=== PATIENT | male | born 1995 | race African-American/Black ===

== ENCOUNTER 2017-03-13 20:02 | Emergency (ER) | payer SELFPAY ==
[~2017-03-13] VITALS: Ht 180.3 cm; Wt 69.8 kg
[2017-03-13 20:24] VITALS: BP 127/76
== END 2017-03-14 | disposition left against medical advice (07) ==
LOC: ER 20:02
DX: R51 Headache (principal); Z53.21 Procedure and treatment not carried out due to patient leaving prior to being seen by health care provider

== ENCOUNTER 2018-01-22 14:12 | Emergency (ER) | payer MEDICAID ==
[~2018-01-22] VITALS: Ht 180.3 cm; Wt 70.7 kg
[2018-01-22 14:58] VITALS: BP 113/68
[2018-01-22] MEDS ORDERED: ALBUTEROL (0.083%) 2.5MG/3ML NEB HHN STA (18:37)
[2018-01-22] MEDS ORDERED: IPRATROPIUM BROMIDE (0.02%) 0.5MG/2.5ML NEB HHN STA (18:37)
== END 2018-01-22 18:56 | disposition home or self-care (01) ==
LOC: ER 14:12
DX: J06.9 Acute upper respiratory infection, unspecified (principal); F12.10 Cannabis abuse, uncomplicated; F17.200 Nicotine dependence, unspecified, uncomplicated
CPT/HCPCS: 71045; 99283; J7611

== ENCOUNTER 2018-06-28 04:00 | Emergency (ER) | payer MEDICAID ==
[~2018-06-28] VITALS: Ht 175.3 cm; Wt 75.0 kg
[2018-06-28] MEDS ORDERED: IBUPROFEN 600MG TABLET PO ONE (08:45)
[2018-06-28 08:53] VITALS: BP 109/57
== END 2018-06-28 09:21 | disposition home or self-care (01) ==
LOC: ER 04:00
DX: S80.01XA Contusion of right knee, initial encounter (principal); J45.909 Unspecified asthma, uncomplicated; E11.9 Type 2 diabetes mellitus without complications; Z88.8 Allergy status to other drugs, medicaments and biological substances; W22.8XXA Striking against or struck by other objects, initial encounter; Y93.89 Activity, other specified; Y92.69 Other specified industrial and construction area as the place of occurrence of the external cause; Y99.8 Other external cause status
CPT/HCPCS: 73560; 99283

== ENCOUNTER 2018-10-09 12:40 | Emergency (ER) | payer MEDICAID ==
[~2018-10-09] VITALS: Ht 180.3 cm; Wt 73.0 kg
[2018-10-09 13:09] VITALS: BP 113/77
== END 2018-10-09 15:33 | disposition left against medical advice (07) ==
LOC: ER 12:40
DX: R06.2 Wheezing (principal); Z53.21 Procedure and treatment not carried out due to patient leaving prior to being seen by health care provider

== ENCOUNTER 2018-10-10 11:48 | Emergency (ER) | payer MEDICAID ==
[~2018-10-10] VITALS: Ht 180.3 cm; Wt 75.0 kg
[2018-10-10] MEDS ORDERED: LEVOFLOXACIN 500MG TABLET PO ONE (12:30)
[2018-10-10] MEDS ORDERED: PREDNISONE 20MG TABLET PO STA (12:30)
[2018-10-10] MEDS ORDERED: IPRATROPIUM/ALBUTEROL 0.5-3(2.5)MG/3ML NEB HHN ONE (12:30)
[2018-10-10 13:37] VITALS: BP 116/64
== END 2018-10-10 13:38 | disposition home or self-care (01) ==
LOC: ER 12:00
DX: J45.909 Unspecified asthma, uncomplicated (principal); R05 Cough; F17.210 Nicotine dependence, cigarettes, uncomplicated; F12.10 Cannabis abuse, uncomplicated; Z98.890 Other specified postprocedural states; Z88.8 Allergy status to other drugs, medicaments and biological substances; Z71.6 Tobacco abuse counseling
CPT/HCPCS: 71045; 94640; 99283; J7512; J7620

== ENCOUNTER 2018-10-31 17:29 | Emergency (ER) | payer MEDICAID ==
[~2018-10-31] VITALS: Ht 175.3 cm; Wt 68.0 kg
[2018-10-31] MEDS ORDERED: ALPRAZOLAM 0.25 MG TABLET PO ONE (18:45)
[2018-10-31 20:21] VITALS: BP 162/78
== END 2018-10-31 20:24 | disposition home or self-care (01) ==
LOC: ER 17:29
DX: F41.0 Panic disorder [episodic paroxysmal anxiety] (principal); F41.9 Anxiety disorder, unspecified; E11.9 Type 2 diabetes mellitus without complications; R56.9 Unspecified convulsions
CPT/HCPCS: 82962; 99284

== ENCOUNTER 2018-11-06 11:23 | Emergency (ER) | payer MEDICAID ==
[~2018-11-06] VITALS: Ht 177.8 cm; Wt 70.0 kg
[2018-11-06 12:26] VITALS: BP 146/74
== END 2018-11-06 12:27 | disposition home or self-care (01) ==
LOC: ER 11:23
DX: F41.9 Anxiety disorder, unspecified (principal); F17.200 Nicotine dependence, unspecified, uncomplicated; F12.10 Cannabis abuse, uncomplicated; F20.9 Schizophrenia, unspecified; Z88.9 Allergy status to unspecified drugs, medicaments and biological substances; Z88.6 Allergy status to analgesic agent; Z98.890 Other specified postprocedural states
CPT/HCPCS: 99284

== ENCOUNTER 2018-12-10 10:44 | Emergency (ER) | payer MEDICAID ==
[~2018-12-10] VITALS: Ht 180.3 cm; Wt 73.0 kg
[2018-12-10 11:04] VITALS: BP 179/87
[2018-12-10] MEDS ORDERED: IBUPROFEN 800MG TABLET PO ONE (12:45)
== END 2018-12-10 13:02 | disposition home or self-care (01) ==
LOC: ER 10:44
DX: K08.89 Other specified disorders of teeth and supporting structures (principal); F41.9 Anxiety disorder, unspecified; F20.9 Schizophrenia, unspecified; J45.909 Unspecified asthma, uncomplicated; F17.200 Nicotine dependence, unspecified, uncomplicated; F12.10 Cannabis abuse, uncomplicated; Z88.8 Allergy status to other drugs, medicaments and biological substances
CPT/HCPCS: 99282

== ENCOUNTER 2018-12-19 10:59 | Emergency (ER) | payer MEDICAID ==
[~2018-12-19] VITALS: Ht 180.3 cm; Wt 73.0 kg
[2018-12-19 11:08] VITALS: BP 124/71
== END 2018-12-19 13:42 | disposition left against medical advice (07) ==
LOC: ER 10:59
DX: Z53.21 Procedure and treatment not carried out due to patient leaving prior to being seen by health care provider (principal)

== ENCOUNTER 2018-12-20 16:48 | Emergency (ER) | payer MEDICAID | END 2018-12-20 18:09 | disposition left against medical advice (07) | LOC: ER 16:48 | DX: K08.89 Other specified disorders of teeth and supporting structures (principal); Z53.21 Procedure and treatment not carried out due to patient leaving prior to being seen by health care provider ==

== ENCOUNTER 2019-04-18 13:03 | Emergency (ER) | payer MEDICAID ==
[~2019-04-18] VITALS: Ht 180.3 cm; Wt 72.0 kg
[2019-04-18 13:36] VITALS: BP 119/68
== END 2019-04-18 14:15 | disposition left against medical advice (07) ==
LOC: ER 13:03
DX: R68.89 Other general symptoms and signs (principal); Z53.21 Procedure and treatment not carried out due to patient leaving prior to being seen by health care provider

== ENCOUNTER 2019-05-16 13:18 | Emergency (ER) | payer MEDICAID ==
[~2019-05-16] VITALS: Ht 170.2 cm; Wt 73.0 kg
[2019-05-16] MEDS ORDERED: LIDOCAINE HCL/PF 1% 10 MG/ML 5ML VIAL IJ ONE (14:30)
[2019-05-16] MEDS ORDERED: IBUPROFEN 600MG TABLET PO STA (14:39)
[2019-05-16 15:21] VITALS: BP 106/53
[2019-05-16] MEDS ORDERED: KETOROLAC 60MG/2ML VIAL IM NR (15:30)
== END 2019-05-16 15:33 | disposition home or self-care (01) ==
LOC: ER 13:26
DX: S61.511D Laceration without foreign body of right wrist, subsequent encounter (principal); S60.051A Contusion of right little finger without damage to nail, initial encounter; J45.909 Unspecified asthma, uncomplicated; F12.10 Cannabis abuse, uncomplicated; F17.200 Nicotine dependence, unspecified, uncomplicated; Z98.890 Other specified postprocedural states; Z88.1 Allergy status to other antibiotic agents; Z88.6 Allergy status to analgesic agent; V49.88XA Car occupant (driver) (passenger) injured in other specified transport accidents, initial encounter; Y93.89 Activity, other specified; Y92.89 Other specified places as the place of occurrence of the external cause; Y99.8 Other external cause status
CPT/HCPCS: 96372; 99283; J1885; J3490; Z7610

== ENCOUNTER 2019-05-22 02:03 | Emergency (ER) | payer MEDICAID ==
[~2019-05-22] VITALS: Ht 177.8 cm; Wt 73.0 kg
[2019-05-22 02:09] VITALS: BP 127/86
== END 2019-05-22 06:37 | disposition left against medical advice (07) ==
LOC: ER 02:03
DX: Z53.21 Procedure and treatment not carried out due to patient leaving prior to being seen by health care provider (principal)

== ENCOUNTER 2019-11-25 12:25 | Emergency (ER) | payer MEDICAID ==
[~2019-11-25] VITALS: Ht 180.3 cm; Wt 70.0 kg
[2019-11-25 14:34] VITALS: BP 114/68
== END 2019-11-25 14:48 | disposition home or self-care (01) ==
LOC: ER 12:25
DX: F12.10 Cannabis abuse, uncomplicated (principal); F20.9 Schizophrenia, unspecified; E11.9 Type 2 diabetes mellitus without complications; Z88.6 Allergy status to analgesic agent
CPT/HCPCS: 99283

== ENCOUNTER 2020-02-29 07:14 | Emergency (ER) | payer MEDICAID ==
[~2020-02-29] VITALS: Ht 180.3 cm; Wt 73.0 kg
[2020-02-29] MEDS ORDERED: KETOROLAC 60MG/2ML VIAL IM ONE (08:00)
[2020-02-29 08:10] LABS: BASOPHILS % 0.6 % (0.0-2.0); EOSINOPHILS % 0.1 % (0.0-5.0); HEMATOCRIT. 43.2 % (42.0-52.0); HEMOGLOBIN. 14.2 g/dL (14.0-18.0); LYMPHOCYTES % 12.2 % (20.0-50.0); MEAN CORPUSCULAR HEMOGLOBIN 26.5 pg (28.0-32.0); MEAN CORPUSCULAR VOLUME 80.7 fL (80.0-94.0); MEAN PLATELET VOLUME 7.9 fl (7.4-10.4); MONOCYTES % 2.4 % (2.0-8.0); NEUTROPHILS % 84.7 % (40.0-76.0); PLATELET 268 x1000/uL (130-400); RED BLOOD CELL COUNT 5.36 mill/uL (4.7-6.1); RED CELL DISTRIBUTION WIDTH 13.2 % (11.6-14.6)
[2020-02-29 08:16] LABS: CLARITY URINE CLEAR (CLEAR); COLOR URINE YELLOW (YELLOW); KETONES URINE 1+ (NEGATIVE); LEUKOCYTE ESTERASE URINE TRACE (NEGATIVE); NITRITE URINE NEGATIVE (NEGATIVE); OCCULT BLOOD URINE NEGATIVE (NEGATIVE); PH URINE >=9.0 (4.5-8.0); PROTEIN URINE TRACE (NEGATIVE); SPECIFIC GRAVITY URINE 1.034 (1.005-1.030)
[2020-02-29 08:18] LABS: CHLORIDE 106 mEq/L (98-107)
[2020-02-29 08:23] LABS: ETHANOL BLOOD < 10 mg/dL
[2020-02-29 08:25] VITALS: BP 134/84
[2020-02-29 08:46] LABS: *AMPHETAMINES SCREEN URINE PRESUMTIVE POSITIVE (NEGATIVE)
[2020-02-29 08:47] LABS: *BENZODIAZEPINES SCREEN URINE NEGATIVE (NEGATIVE); *COCAINE SCREEN URINE NEGATIVE (NEGATIVE); CANNABINOID URINE SCREEN PRESUMTIVE POSITIVE (NEGATIVE); METHADONE URINE SCREEN NEGATIVE (NEGATIVE); OPIATES URINE SCREEN NEGATIVE (NEGATIVE); PHENCYCLIDINE URINE SCREEN NEGATIVE (NEGATIVE)
[2020-02-29 08:48] LABS: *BARBITURATES SCREEN URINE NEGATIVE (NEGATIVE)
== END 2020-02-29 10:02 | disposition left against medical advice (07) ==
LOC: ER 07:14
DX: M54.40 Lumbago with sciatica, unspecified side (principal); E11.9 Type 2 diabetes mellitus without complications; F12.10 Cannabis abuse, uncomplicated; F15.10 Other stimulant abuse, uncomplicated; Z88.8 Allergy status to other drugs, medicaments and biological substances
CPT/HCPCS: 36415; 80053; 80305; 80320; 81003; 85025; 96372; 99283; J1885; G0480